=== PATIENT | male | born 1960 | race Caucasian/White ===

== ENCOUNTER 2016-07-14 20:56 | Emergency (ER) | payer MEDICAID ==
--- NOTE | 2016-07-14 21:21 | EDPHY ---
H & P Time Seen by Provider: 07/14/16 21:11 HPI/ROS: CHIEF COMPLAINT: Left wrist pain HISTORY OF PRESENT ILLNESS: Patient is a 56-year-old male with a history of bipolar disorder who presents to the emergency department with left wrist pain. Patient was on a trampoline and fell off. He landed on his left wrist. He now complains of moderate to severe left wrist pain. He states he has chronic back pain and he will be "sore tomorrow." He has no numbness or tingling. He denies striking his head or losing consciousness. REVIEW OF SYSTEMS: My complete review of systems is negative except as mentioned in the HPI. Past Medical/Surgical History: Includes bipolar disorder Past surgical history: Orthopedic surgery Smoking Status: Never smoked Physical Exam: Vitals noted GENERAL: Well-appearing, in no acute distress, alert. HEAD: No evidence of trauma. EYES: PERRLA, EOMI, normal to inspection. ENT: Airway intact,normal external examination. NECK: The trachea is midline. There is no crepitus. The C-spine is nontender. NEXUS criteria is negative (no midline tenderness, no distracting injury, no altered mental status, no recent alcohol use, no focal neurologic deficit). RESPIRATORY: Clear to auscultation bilaterally, no rales, rhonchi or wheezing CVS: Regular rate and rhythm, no rubs, murmurs, or gallops. ABDOMEN: Soft, nontender. Pelvis: Stable. No tenderness palpation. Hips full range of motion. BACK: Normal to inspection, no spinal tenderness, no spinal step off, no notable bruising or abrasions. SKIN: Normal color, warm, dry. No pallor or diaphoresis. EXTREMITIES: Right upper extremity: Atraumatic. No visible signs of trauma. No tenderness palpation. Neurovascular intact distally. Left upper extremity: Patient has a deformity of his left wrist. No laceration or open wound. He is neurovascularly intact distally. Patient's proximal forearm, elbow, humerus and shoulder are nontender. Right lower extremity: Atraumatic. No visible signs of trauma. No tenderness palpation. Neurovascular intact distally. Left lower extremity: Atraumatic. No visible signs of trauma. No tenderness palpation. Neurovascular intact distally. Atraumatic, neurovascularly intact distally in all extremities, pelvis is stable , hips with full range of motion, moves all extremities freely. NEURO/PSYCH: Alert and oriented x 3, GCS 15, normal mood and affect, normal motor sensory exam. Constitutional: Initial Vital Signs Temperature (C) 36.6 C 07/14/16 20:56 Heart Rate 50 L 07/14/16 20:56 Respiratory Rate 16 07/14/16 20:56 Blood Pressure 139/89 H 07/14/16 20:56 O2 Sat (%) 95 07/14/16 20:56 O2 Delivery Mode Room Air Allergies/Adverse Reactions: No Known Allergies Allergy (Verified 07/14/16 21:28) Home Medications: Medication Instructions Recorded Gabapentin [Neurontin 300 MG (RX)] 900 mg PO DAILY06 06/13/11 LORazepam [Ativan] 2 mg PO HS 06/13/11 lamoTRIgine [Lamictal Odt] 200 mg PO DAILY06 06/13/11 Aspirin [Aspirin 81mg (OTC)] 81 mg PO HS 09/27/12 clonAZEPAM [Klonopin] 1 mg PO HS 09/27/12 Albuterol 5 mg/ml INH AD PRN 06/25/16 Diclofenac Sodium DAILY06 06/25/16 Finasteride DAILY06 06/25/16 Flomax HS 06/25/16 Lipitor HS 06/25/16 Oxybutynin BID 06/25/16 Zanaflex TID 06/25/16 oxyCODONE/APAP 5/325 [Percocet 1 - 2 tab PO Q4PRN PRN #9 tab 07/14/16 5/325 (*)] Medical Decision Making - Diagnostics Imaging Results: Imaging Impressions Wrist X-Ray 07/14/16 21:18 Impression: Displaced, comminuted intra-articular fracture of the distal left radius. ED Course/Re-evaluation: In the emergency department I discussed etiologies with the patient. I answered all his questions. He consented to an x-ray of his wrist. Patient was given fentanyl 50 mcg IV for pain control. Left wrist x-ray: Please refer the dictated report by the radiologist. I reviewed the images. Patient has distal comminuted intra-articular fracture of his distal radius. I discussed the result with the patient. I paged Dr. Reyna. Dr. Cosby reviewed the images. He requested CT imaging. He did not feel the patient needed reduction in the emergency department. He recommended splinting and follow up with this office tomorrow morning. I discussed this plan with the patient. He is given 2 Percocet orally prior to CT imaging. Patient was placed in a sugar-tong splint. Post splint placement patient was neurovascular intact distally. Patient was given warnings prior to leaving. He understands he needs close follow-up with Dr. Cosby tomorrow morning. He will call his office. Differential Diagnosis: My differential includes but is not limited to fracture, dislocation, contusion , sprain, compartment syndrome - Data Points Medications Given: Discontinued Medications Fentanyl (Sublimaze) 50 mcg IVP EDNOW ONE Stop: 07/14/16 21:38 Last Admin: 07/14/16 21:25 Dose: 50 mcg Departure - Departure Disposition: Home, Routine, Self-Care Clinical Impression: Wrist fracture, left Qualifiers: Encounter type: initial encounter Fracture type: closed Qualified Code(s): S62.102A - Fracture of unspecified carpal bone, left wrist, initial encounter for closed fracture Condition: Good Instructions: Wrist Fracture in Adults (ED) Additional Instructions: You have a fractured wrist. Dr. Cosby reviewed your x-rays. He requests that you call his office 1st thing tomorrow morning. You will likely be seen in his office tomorrow morning. Return with increasing numbness or pain. Keep her splint in place. Referrals: Yoav Cosby MD [Medical Doctor] - 07/15/16 Prescriptions: oxyCODONE/APAP 5/325 [Percocet 5/325 (*)] 1 - 2 tab PO Q4PRN PRN #9 tab PRN Reason: For Moderate To Severe Pain
[2016-07-14] MEDS ORDERED: fentaNYL 100 MCG/2 ML INJ ONE (21:22)
[2016-07-14 21:34] VITALS: PULSE 50; RESP 16; TEMP 97.9
[2016-07-14] MEDS ORDERED: fentaNYL 100 MCG/2 ML INJ IVP ONE (21:37)
[2016-07-14] MEDS ORDERED: OXYCODONE/APAP 5/325 TAB ONE (22:14)
[2016-07-14] MEDS ORDERED: OXYCODONE/APAP 5/325MG PREPACK#4 BTL TAKEHOME ONE (22:35)
[2016-07-14 23:20] VITALS: BP 137/87; O2SAT 94
[2016-07-16] MEDS ORDERED: BUPIVACAINE 0.5% 30 ML SDV ONE ×2 (07:23→11:52)
== END 2016-07-14 23:17 | disposition home or self-care (01) ==
LOC: EDUNIT#
DX: S62.102A Fracture of unspecified carpal bone, left wrist, initial encounter for closed fracture (principal); Z79.82 Long term (current) use of aspirin; W17.89XA Other fall from one level to another, initial encounter; Y99.8 Other external cause status; Y93.44 Activity, trampolining
CPT/HCPCS: 96374; A4565; J3010

== ENCOUNTER 2016-07-16 10:42 | Observation (INO) | payer MEDICAID ==
[2016-07-16] MEDS ORDERED: LIDOCAINE 1% 2 ML INJ ONE (11:03)
[2016-07-16] MEDS ORDERED: fentaNYL 100 MCG/2 ML INJ ONE ×4 (11:41→14:16)
[2016-07-16] MEDS ORDERED: BUPIVACAINE 0.5% 30 ML SDV ONE (11:49)
[2016-07-16] MEDS ORDERED: ceFAZolin 2 GM/DEXTROSE 100 ML IV ONE (12:00)
[2016-07-16] MEDS ORDERED: CHLORHEXIDINE GLUC HIBICLENS 118 ML BTL TP ONE (12:00)
[2016-07-16] MEDS ORDERED: PROPOFOL/EMULSION 500 MG/50 ML BOTTLE IV ONE (12:16)
[2016-07-16] MEDS ORDERED: DEXAMETHASONE 4 MG/ML VIAL ONE ×2 (12:29)
[2016-07-16] MEDS ORDERED: CYCLOBENZAPRINE 10 MG TAB PO PRN (13:42)
[2016-07-16] MEDS ORDERED: ONDANSETRON DISINTEGRATING 4 MG TAB PO PRN (13:42)
[2016-07-16] MEDS ORDERED: DIPHENOXYLATE/ATROPINE LOMOTIL 1 TAB PO PRN (13:42)
[2016-07-16] MEDS ORDERED: ONDANSETRON 4 MG/2 ML VIAL IVP PRN (13:42)
[2016-07-16] MEDS ORDERED: PROMETHAZINE HCL 25 MG SUPPR PR PRN (13:42)
[2016-07-16] MEDS ORDERED: METOCLOPRAMIDE 10 MG/2 ML VIAL IVP PRN (13:42)
[2016-07-16] MEDS ORDERED: TEMAZEPAM 15 MG CAP PO PRN (13:42)
[2016-07-16] MEDS ORDERED: diphenhydrAMINE 25 MG CAP PO PRN (13:42)
[2016-07-16] MEDS: oxyCODONE IR 5 MG TAB PO PRN ×2 (15:29→18:42)
[2016-07-16] MEDS: LR 1,000 ML IV SCH (15:31)
--- NOTE | 2016-07-16 15:41 | GOP ---
[f rep st] OPERATIVE REPORT DATE OF OPERATION: 07/16/2016 SURGEON: Yoav Cosby MD [employer]: Deion Joaquin SA. ANESTHESIA: General. PREOPERATIVE DIAGNOSIS: Left comminuted intra-articular 4 part distal radius fracture. POSTOPERATIVE DIAGNOSIS: PROCEDURE PERFORMED: FINDINGS: fracture SPECIMENS:none ESTIMATED BLOOD LOSS: 5 mL. INDICATIONS: This is a 56-year-old male who sustained a fall and this complex intra-articular distal radius fracture. I had a CT scan performed and saw him in the clinic. I counseled him on the risks, benefits of ORIF versus nonoperative treatment. Given the intra-articular nature of the displacement and step-offs, we elected to proceed with the surgery. He does have multiple medical issues and I consulted with his primary care physician who recommend admission afterwards, as he has had some recent episodes of hypotension, and medical and renal insufficiency. She felt he would do well with surgery, but recommended admission. We will do this. Informed consent was obtained with the patient. All questions were answered, marked preoperatively. We discussed risks of nerve injury, arthritis, step-off, nonunion, malunion, failure of hardware, problem with the hardware, tendon rupture, and he elected to proceed. Informed consent was obtained. All questions were answered and he was marked preoperatively. DESCRIPTION OF PROCEDURE: He was taken to the operative suite, sterilely prepped and draped in a normal fashion, time-out was performed verifying the site, side, location, patient, and agreement among the team. Incision was made volarly over the wrist. I went through the FCR sheath, using this to protect the neurovascular bundle, and then took the quadratus off the bone and swept this medially. I was able to work through the fracture site and reduce some of the intra-articular fragments indirectly. I got around to the ulnar side and reduced this fragment, as well as the styloid fragment and the main distal radius fragment. I then flexed the wrist and was able to reduce this and hold this with a K-wire. I placed a plate on this and checked the position, readjusted this, checked the plate position again, placed a locking screw distally in the fragment, and then brought the plate to bone with a cortical screw proximally helping to achieve further reduction. I placed locking screws distally and cortical screws proximally. I checked the length of the locking screws and they were not in the joint, and checked with this live. He was thoroughly irrigated, closed with 2-0 Vicryl, 3-0 Vicryl, 3-0 Monocryl, and Dermabond. Taken to PACU in stable condition. IMPLANT: Synthes distal radius plate with locking and nonlocking screws. COMPLICATIONS: None. DRAINS: None. CONDITION: Stable. /[id number]/MODL MTDD
[2016-07-16] MEDS: ACETAMINOPHEN 325 MG TAB PO SCH (18:09)
[2016-07-16] MEDS: ceFAZolin 2 GM/DEXTROSE 100 ML IV SCH (20:02)
[2016-07-16] MEDS ORDERED: LORazepam 1 MG TAB PO PRN (20:45)
[2016-07-16] MEDS: FAMOTIDINE 20 MG TAB PO SCH (20:55)
[2016-07-17] MEDS: ACETAMINOPHEN 325 MG TAB PO SCH ×3 (02:39→14:49)
[2016-07-17] MEDS: oxyCODONE IR 5 MG TAB PO PRN ×2 (03:42→08:17)
[2016-07-17] MEDS: ceFAZolin 2 GM/DEXTROSE 100 ML IV SCH (03:42)
[2016-07-17] MEDS: LR 1,000 ML IV SCH (03:44)
[2016-07-17 05:20] LABS: HEMATOCRIT 42.3 % (40.0-51.0); HEMOGLOBIN 14.3 g/dL (13.7-17.5)
[2016-07-17 08:12] VITALS: RESP 15
[2016-07-17] MEDS: FAMOTIDINE 20 MG TAB PO SCH (08:19)
--- NOTE | 2016-07-17 08:29 | SOAPPROG ---
JOHN Progress Note Assessment/Plan: Assessment: orif left distal radius Plan: home elevate nwb keep dry 07/17/16 08:28 Subjective: pain Objective: Vital Signs Temp Pulse Resp BP Pulse Ox 36.7 C 44 L 15 101/55 L 98 07/17/16 08:00 07/17/16 08:00 07/17/16 08:00 07/17/16 08:00 07/17/16 08:00 Laboratory Results 07/17/16 05:00 07/16/16 07/17/16 07/18/16 05:59 05:59 05:59 Intake Total 3721 Output Total 2703 Balance 1018 splint in tact ICD10 Worksheet Patient Problems: Problems Problem Status Onset Distal radius fracture, left Acute - ICD10 Problem Qualifiers (1) Distal radius fracture, left Qualifiers: Encounter type: subsequent encounter Fracture type: closed Open fracture type: O Fracture morphology: F Fracture alignment: F Fracture healing: F
--- NOTE | 2016-07-17 08:40 | CPEKG ---
Heart Rate: 42 RR Interval: 1429 P-R Interval: 160 QRSD Interval: 84 QT Interval: 472 QTC Interval: 395 P [place]: 41 QRS [place]: 16 T Wave [place]: 5 EKG Severity - OTHERWISE NORMAL ECG - EKG Impression: SINUS BRADYCARDIA Electronically Signed By: Clifton Valdez 17-Jul-2016 09:09:23
[2016-07-17 09:13] LABS: CK-MB INTERPRETATION NEGATIVE (NEGATIVE); TROPONIN I < 0.012 ng/mL (0-0.034)
[2016-07-17 09:18] LABS: CREATINE KINASE-MB FRACTION 4.72 ng/mL (0-3.19)
[2016-07-17] MEDS ORDERED: clonazePAM 1 MG TAB PO PRN (11:22)
[2016-07-17] MEDS ORDERED: ALBUTEROL 60 PUFFS/8 GM MDI IH PRN (11:22)
[2016-07-17] MEDS ORDERED: LORazepam 1 MG TAB PO PRN (11:22)
[2016-07-17] MEDS ORDERED: FINASTERIDE 5 MG TAB PO SCH (11:30)
[2016-07-17 12:19] LABS: ANION GAP 13 mEq/L (8-16); CALCIUM 9.7 mg/dL (8.5-10.4); CARBON DIOXIDE 25 mEq/l (22-31); CHLORIDE 102 mEq/L (97-110); GLOMERULAR FILTRATION RATE > 60; GLUCOSE 133 mg/dL (70-100); POTASSIUM 4.4 mEq/L (3.5-5.2); SODIUM 140 mEq/L (134-144)
--- NOTE | 2016-07-17 12:29 | GCON ---
[f rep st] CONSULTATION REFERRING PHYSICIAN: Yoav Cosby MD REASON FOR CONSULTATION: Evaluation of chest pain. HISTORY OF PRESENT ILLNESS: The patient is a 56-year-old male who has a past medical history of GERD, sleep apnea, anxiety as well as bipolar disorder who is postop day #1 for a left distal radius fracture. He had an ORIF performed with Dr. Cosby. This morning he developed an episode of chest pain. The pain did not radiate anywhere. He did not have any nausea or vomiting. He describes the chest pain being hooked underneath the sternal area and that it was intermittent. The pain is different than that of GERD. He does not feel that his anxiety caused the chest pain. It has since resolved on its own. Cardiac enzymes were checked which are negative. An EKG performed which showed sinus bradycardia. He had a stress test done approximately 2 years ago and stated that this was normal. He does not recall where this was done. In regard to his radius fracture, it was simply an issue of gait instability. He tripped and fell over a trampoline and then slipped again. He had no presyncopal-type symptoms prior. During my interview his pain is well managed. PAST MEDICAL HISTORY: 1. Bradycardia. 2. History of hypotension. 3. High cholesterol. 4. Sleep apnea, on CPAP. 5. Renal insufficiency. 6. Tinnitus located in his right ear. 7. Anxiety and depression. 8. Bipolar 2, well managed. PAST SURGICAL HISTORY: 1. 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 2. One knee surgery. 3. Tonsillectomy. 4. LASIK surgery to his right eye. SOCIAL HISTORY: He is currently not in a relationship. He does not smoke. He occasionally uses alcohol. He does not use any type of cannabis or any hard drugs. He currently is on disability. FAMILY HISTORY: His father at age 69 from complications of leukemia and also had a myocardial infarction. His mom from cancer at age 69. ALLERGIES: Tramadol. HOME MEDICATIONS: Zanaflex 6 mg daily and p.r.n., Nexium 40 mg p.o. at bedtime , Percocet 1-2 tabs q.4 hours p.r.n., Ditropan 5 mg p.o. b.i.d., Lipitor 40 mg p.o. at bedtime, Lamictal 200 mg daily, Ativan 2 mg p.o. at bedtime, Ativan 2 mg daily, Neurontin 900 mg daily, Neurontin 1200 mg p.o. at bedtime, Flomax 0.4 mg at bedtime, Proscar 5 mg daily, Voltaren 75 mg p.o. daily, Klonopin 1 mg p.o. at bedtime, Klonopin 1 mg daily p.r.n., aspirin 81 mg p.o. daily, albuterol inhaler 2 puffs q.4 hours p.r.n., and OxyIR 5-10 mg q.3 hours p.r.n. REVIEW OF SYSTEMS: A 10-point review of system was performed and was negative other than pertinent positives in the HPI and past medical history. PHYSICAL EXAM: GENERAL. The patient is a 56-year-old male who does not appear to be in any distress. VITAL SIGNS: Blood pressure is 101/55, heart rate is 44 , respiratory rate is 15, O2 sat on room air 98%, temperature is 36.7 Celsius. EYES: Pupils are equal and reactive. EOMs are intact. No conjunctival injection noted. ENT: Normal ears, hearing intact. Normal lips, teeth. Oral airway intact. NECK: Trachea is midline. CARDIOVASCULAR: He is bradycardic during my evaluation, regular rate. No murmurs, rubs, or gallops noted. CHEST/ LUNGS: Normal respiratory effort. Clear without wheezing, rales, rhonchi. ABDOMEN: Soft, nontender. SKIN: No rashes or ulcers. Warm, dry, intact. He has good CMS on his left hand. MUSCULOSKELETAL: Normal gait. He has equal lower extremity strength. Upper strength, he has his left wrist in a splint. PSYCHIATRIC: He is alert and oriented. Normal mood and affect. Normal judgment. Normal insight and normal memory. LABORATORY DATA: Hemoglobin and hematocrit were checked this morning at 14.3 and 42.3. A CPK was elevated at 366. Troponin is less than 0.012. ECG was performed which I evaluated myself which showed sinus bradycardia. ASSESSMENT/PLAN: 1. Chest pain. I am able to reproduce this with palpation. His symptoms resolved without any intervention. Troponin is negative. Awaiting his second troponin. Reviewed his EKG, which shows a sinus bradycardia. Recommending once he heals from his surgery for his left radius fracture that he get a stress test. 2. Gastroesophageal reflux disease. Continue PPI. 3. Depression and anxiety. Resumed his home medications. 4. Chronic renal insufficiency. Will check a chemistry panel prior to discharge. 5. Hypotension. He is on multiple medications that can cause this. Will recommend that he get a blood pressure cuff at home. 6. Bipolar disorder. Resumed his home medication. 7. Will further evaluate his second troponin this afternoon and will have Dr. Neff also evaluate this. If this is stable, he can be discharged home. Thank you for this consultation. /[id number]/MODL MTDD
[2016-07-17 12:44] VITALS: BP 101/66; PULSE 46; TEMP 98.4; O2SAT 93
--- NOTE | 2016-07-17 16:27 | HOSPPROG ---
Hospitalist Progress Note Assessment/Plan: I have visited this patient in follow up after prior evaluation by Paris Montes NP. His pain is resolved. This was a sharp very localized pain that does not sound at all like angina, and was not pleuritic. It is fairly nonspecific. There were no other associated sxs. He is up ambulating, eating, has no sob, palpitations, fever sxs, DVT sxs, fever sxs, cough. His troponins and ekg are normal. I do not think this is cardiac, embolic, pulmonary, or a symptom of serious intraabdominal pathology. I think he can discharge home safely. I advised him that if he has recurrences he should reasses with his primary MD Dr Davis. Objective: Vital Signs Temp Pulse Resp BP Pulse Ox 36.9 C 46 L 15 101/66 93 07/17/16 12:43 07/17/16 12:43 07/17/16 12:43 07/17/16 12:43 07/17/16 12:43 Laboratory Results 07/17/16 05:00 07/17/16 11:55 07/16/16 07/17/16 07/18/16 06:59 06:59 06:59 Intake Total 3721 Output Total 2703 600 Balance 1018 -600 ICD10 Worksheet Patient Problems: Problems Problem Status Onset Distal radius fracture, left Acute
[2016-07-17] MEDS ORDERED: OXYBUTYNIN CHLORIDE 5 MG TAB PO SCH (21:00)
[2016-07-17] MEDS ORDERED: LORazepam 1 MG TAB PO SCH (21:00)
[2016-07-17] MEDS ORDERED: NON-FORMULARY NEW DRUG (Esomeprazole Mag Trihydrate [Nexium] 40 MG) PO SCH (21:00)
[2016-07-17] MEDS ORDERED: ATORVASTATIN CALCIUM 40 MG TAB PO SCH (21:00)
[2016-07-17] MEDS ORDERED: PANTOPRAZOLE SODIUM 40 MG TAB PO SCH (21:00)
[2016-07-17] MEDS ORDERED: clonazePAM 1 MG TAB PO SCH (21:00)
[2016-07-17] MEDS ORDERED: GABAPENTIN 300 MG CAP PO SCH (21:00)
[2016-07-17] MEDS ORDERED: TAMSULOSIN HCL 0.4 MG CAP PO SCH (21:00)
[2016-07-18] MEDS ORDERED: GABAPENTIN 300 MG CAP PO SCH (09:00)
[2016-07-18] MEDS ORDERED: NON-FORMULARY NEW DRUG (Lamotrigine [Lamictal] 200 MG) PO SCH (09:00)
[2016-07-18] MEDS ORDERED: lamoTRIgine 100 MG TAB PO SCH (09:00)
== END 2016-07-17 17:16 | disposition home or self-care (01) ==
LOC: FSGY 10:42 → F3N 13:42
PROVIDERS: ADMIT Orthopaedic Surgery; ATTEND Orthopaedic Surgery
PROC: 0PSJ04Z Reposition Left Radius with Internal Fixation Device, Open Approach (ICD-10-PCS; principal; 2016-07-16 12:15)
DX: S52.572A Other intraarticular fracture of lower end of left radius, initial encounter for closed fracture (principal); R07.9 Chest pain, unspecified; I95.9 Hypotension, unspecified; W01.0XXA Fall on same level from slipping, tripping and stumbling without subsequent striking against object, initial encounter; E78.5 Hyperlipidemia, unspecified; J45.909 Unspecified asthma, uncomplicated; K21.9 Gastro-esophageal reflux disease without esophagitis; G47.30 Sleep apnea, unspecified; F41.9 Anxiety disorder, unspecified; F31.9 Bipolar disorder, unspecified; H81.09 Meniere's disease, unspecified ear; N18.9 Chronic kidney disease, unspecified
CPT/HCPCS: 25609; 93005; 97161; 97165; C1769; G0378; C1713; J0690; J1100; J2704; J3010

== ENCOUNTER 2016-07-29 10:10 | Day surgery (SDC) | payer MEDICAID ==
[2016-07-29] MEDS ORDERED: MIDAZOLAM 2 MG/2 ML VIAL ONE (11:40)
[2016-07-29] MEDS ORDERED: PROPOFOL/EMULSION 500 MG/50 ML BOTTLE IV ONE (11:46)
[2016-07-29] MEDS ORDERED: fentaNYL 100 MCG/2 ML INJ ONE (11:46)
--- NOTE | 2016-07-29 12:37 | GPN ---
[f rep st] PROCEDURE NOTE DATE OF PROCEDURE: 07/29/2016 PROCEDURE: Esophagogastroduodenoscopy with biopsy. INDICATION: The patient is a 56-year-old male who presents with complaints of heartburn. He is on PPI therapy and does have occasional breakthrough symptoms. He presents for further evaluation. CONSENT: Risks, benefits, and alternatives of the procedure were discussed in great detail with the patient. Risks of infection, bleeding, perforation, and sedation were discussed. All questions answered. Informed consent was obtained. MEDICATIONS: Propofol. Please see anesthesiology record for details. ESTIMATED BLOOD LOSS: Insignificant. ESOPHAGOGASTRODUODENOSCOPY EXAMINATION: The Olympus upper endoscope introduced into mouth and advanced to the esophagus. The proximal, mid, and distal esophagus was normal in appearance. The stomach was entered and closely examined, including retroflexed views of angularis, cardia, and fundus. A small hiatal hernia was visualized. The mucosa in the antrum and body was erythematous in a patchy distribution, and biopsies were taken. In the second portion of the duodenum, mild mucosal atrophy was noted. Biopsies were taken to rule out celiac sprue. IMPRESSION: 1. Gastritis, status post biopsy. 2. Small hiatal hernia. 3. Subtle atrophy in the second portion of the duodenum. RECOMMENDATIONS: 1. Follow up on biopsy results. 2. PPI therapy. 3. Proceed with colonoscopy. /[id number]/MODL MTDD
--- NOTE | 2016-07-29 12:42 | GPN ---
[f rep st] PROCEDURE NOTE DATE OF PROCEDURE: 07/29/2016 PROCEDURE PERFORMED: Colonoscopy. INDICATION: The patient is a 56-year-old male with a family history of colonic polyps who presents for surveillance colonoscopy. CONSENT: Risks, benefits, and alternatives of the procedure were discussed in great detail with the patient. Risk of infection, bleeding, perforation, and sedation were discussed. All questions answered and informed consent was obtained. MEDICATIONS: Propofol. Please see Anesthesiology record for details. ESTIMATED BLOOD LOSS: Insignificant. COLONOSCOPIC EVALUATION: A rectal exam was done and no palpable mass was felt. The scope was introduced into the rectum and advanced to the cecum where the ileocecal valve and appendiceal orifice were seen. The colonic mucosa was carefully examined upon both insertion and withdrawal of the scope. The colon prep was good. The patient was noted to have multiple small sigmoid diverticula. No polyps or masses were appreciated. IMPRESSION: Sigmoid diverticulosis. RECOMMENDATIONS: 1. Fiber supplementation. 2. Repeat colonoscopy in 5 years. /[id number]/MODL MTDD
--- NOTE | 2016-07-29 12:42 | GPN ---
[f rep st] PROCEDURE NOTE Colonoscopy report already dictated /[id number]/MODL MTDD
== END 2016-07-29 13:45 | disposition home or self-care (01) ==
LOC: FSGY 10:10
PROVIDERS: ATTEND Internal Medicine Gastroenterology
DX: K29.70 Gastritis, unspecified, without bleeding (principal); K44.9 Diaphragmatic hernia without obstruction or gangrene; K21.9 Gastro-esophageal reflux disease without esophagitis; J45.909 Unspecified asthma, uncomplicated; G47.33 Obstructive sleep apnea (adult) (pediatric); Z83.71 Family history of colonic polyps
CPT/HCPCS: J2250; J2704; J3010

== ENCOUNTER 2016-09-27 14:53 | Day surgery (SDC) | payer MEDICAID ==
[~2016-09-27 14:53] MED LIST: ceFAZolin 2 GM/DEXTROSE 100 ML IV ONE
[2016-09-27] MEDS ORDERED: CEFAZOLIN 2 GM/DEXTROSE/100 ML BAG IV ONE (15:09)
[2016-09-27] MEDS ORDERED: LR 1,000 ML IV ONE (15:32)
[2016-09-27] MEDS ORDERED: BUPIVACAINE 0.5% 30 ML SDV ONE (16:06)
[2016-09-27] MEDS ORDERED: NALOXONE HCL 0.4 MG/ML INJ IVP PRN ×2 (16:49→17:53)
[2016-09-27] MEDS ORDERED: MIDAZOLAM 2 MG/2 ML VIAL IVP ONE (16:49)
--- NOTE | 2016-09-27 16:49 | PDANEPAE ---
ANE History of Present Illness retained hardware needing removal ANE Past Medical History - Cardiovascular History Hx Hypertension: Yes Hx Arrhythmias: No Hx Chest Pain: No Hx Coronary Artery / Peripheral Vascular Disease: No Hx CHF / Valvular Disease: No Hx Palpitations: No Cardiovascular History Comment: RECENTLY LOW BP RX DC'D - Pulmonary History Hx COPD: No Hx Asthma/Reactive Airway Disease: Yes Hx Recent Upper Respiratory Infection: No Hx Oxygen in Use at Home: No Hx Sleep Apnea: Yes Sleep Apnea Screening Result - Last Documented: Positive Pulmonary History Comment: SLIGHT ASTHMA. LUZ USES C-PAP INSTRUCTED TO BRING DOP - Neurologic History Hx Cerebrovascular Accident: No Hx Seizures: No Hx Dementia: No Neurologic History Comment: DDD/PREV CERVICAL HERNIATION - Endocrine History Hx Diabetes: No - Renal History Hx Renal Disorders: Yes Renal History Comment: DECREASED KIDNEY FUNCTION RELATED TO RX WHICH HAS BEEN DECREASED HAVING FURTHER FOLLOW UP WHICH HAS RESOLVED ISSUE. - Liver History Hx Hepatic Disorders: No - Neurological & Psychiatric Hx Hx Neurological and Psychiatric Disorders: Yes Neurological / Psychiatric History Comment: BIPOLAR TYPE 2. DEPRESSION. ANXIETY - Cancer History Hx Cancer: No - Congenital Disorder History Hx Congenital Disorders: No - GI History Hx Gastrointestinal Disorders: No - Other Health History Other Health History: [place] VIRUS 2012. TINNITUS OD - Chronic Pain History Chronic Pain: Yes (DDD, left wrist) - Surgical History Prior Surgeries: EGD/COLONOSCOPY 07/2016. LT WRIST ORIF 06/2016. CYSTOSCOPY 2013. T & A. RT KNEE SCOPE. LASIK OD. COLONOSCOPY 2011 ANE Review of Systems - Exercise capacity METS (RN): 4 METS ANE Patient History - Allergies Allergies/Adverse Reactions: tramadol Allergy (Verified 09/27/16 15:14) shaking - Home Medications Home Medications: Albuterol [Proventil Inhaler HFA (*)] 2 puffs IH Q4 PRN 07/16/16 [Last Taken 11/06] Aspirin EC [Aspirin EC 81 mg (*)] 81 mg PO DAILY 07/16/16 [Last Taken 09/26/16] Atorvastatin Calcium [Lipitor 40 mg (*)] 40 mg PO HS 07/16/16 [Last Taken ] Diclofenac Sodium [Voltaren 75 MG (*)] 75 mg PO DAILY 07/16/16 [Last Taken 09/20] Esomeprazole Mag Trihydrate [Nexium] 40 mg PO HS 07/16/16 [Last Taken 09/26/16] Finasteride [Proscar 5 MG (*)] 5 mg PO DAILY 07/16/16 [Last Taken 09/27/16 07:00 ] Gabapentin [Neurontin 300 MG (*)] 1,200 mg PO HS 07/16/16 [Last Taken 09/26/16] Gabapentin [Neurontin 300 MG (*)] 900 mg PO DAILY 07/16/16 [Last Taken 09/27/16 07:00] LORazepam [Ativan (*)] 2 mg PO DAILY PRN 07/16/16 [Last Taken 09/26/16] LORazepam [Ativan (*)] 2 mg PO HS 07/16/16 [Last Taken 09/26/16] Oxybutynin Chloride [Ditropan] 5 mg PO BID 07/16/16 [Last Taken 09/26/16] Tamsulosin HCl [Flomax 0.4 MG (*)] 0.4 mg PO HS 07/16/16 [Last Taken 09/27/16 07 :00] clonazePAM [klonoPIN (*)] 1 mg PO DAILY PRN 07/16/16 [Last Taken 09/29/15] clonazePAM [klonoPIN (*)] 1 mg PO HS 07/16/16 [Last Taken 09/26/16] lamoTRIgine [Lamictal] 200 mg PO DAILY 07/16/16 [Last Taken 09/27/16 07:00] tiZANidine HCL [Zanaflex 2MG (*)] 6 mg PO TID 07/16/16 [Last Taken 09/26/16] Herbal Drugs DAILY 09/26/16 [Last Taken 09/27/16 07:00] Ondansetron TID 09/26/16 [Last Taken 09/27/16 07:00] - NPO status NPO Since - Liquids (Date): 09/27/16 NPO Since - Liquids (Time): 07:00 NPO Since - Solids (Date): 09/26/16 NPO Since - Solids (Time): 22:00 - Smoking Hx Smoking Status: Never smoked - Family Anes Hx Family Hx Anesthesia Complications: none ANE Labs/Vital Signs - Vital Signs Blood Pressure: 141/89 Heart Rate: 63 Respiratory Rate: 13 O2 Sat (%): 93 Height: 165.1 cm Weight: 90.718 kg ANE Physical Exam - Airway Neck exam: FROM Mallampati Score: Class 1 - Pulmonary Pulmonary: no respiratory distress - Cardiovascular Cardiovascular: regular rate and rhythym - ASA Status ASA Status: II ANE Anesthesia Plan Anesthesia Plan: GA w LMA (postop nerveblock if needed)
[2016-09-27] MEDS ORDERED: MIDAZOLAM 2 MG/2 ML VIAL ONE (16:52)
--- NOTE | 2016-09-27 16:53 | PDHPUP ---
History & Physical Update H&P update statement: This history and physical update is based on an assessment of the patient which was completed after admission or registration (within 24 hours), but prior to the surgery/procedure.
[2016-09-27] MEDS ORDERED: fentaNYL 100 MCG/2 ML INJ ONE (17:04)
[2016-09-27] MEDS ORDERED: DEXAMETHASONE 4 MG/ML VIAL ONE ×2 (17:04)
[2016-09-27] MEDS ORDERED: PROPOFOL/EMULSION 500 MG/50 ML BOTTLE IV ONE (17:04)
[2016-09-27] MEDS ORDERED: LIDOCAINE 2% 5 ML SDV ONE (17:05)
[2016-09-27] MEDS ORDERED: ONDANSETRON 4 MG/2 ML VIAL ONE (17:05)
[2016-09-27] MEDS ORDERED: LIDOCAINE 2% JELLY 5 ML TUBE ONE (17:08)
--- NOTE | 2016-09-27 17:48 | POSTOPPROG ---
Post Op Note Date of Operation: 09/27/16 Surgeon: Yoav Cosby Associate Professor Of Biblical Studies: none Anesthesiologist: herson Anesthesia: GET(General Endotracheal) Pre-op Diagnosis: L wrist retained hardware Post-op Diagnosis: same Indication: symptomatic hardware Procedure: hardware removal left wrist Inf/Abcess present in the surg proc area at time of surgery?: No EBL: Minimal
[2016-09-27] MEDS ORDERED: PROMETHAZINE HCL 25 MG/ML INJ IVP PRN (17:53)
[2016-09-27] MEDS ORDERED: MEPERIDINE 25 MG/ML SYR IVP PRN (17:53)
[2016-09-27] MEDS ORDERED: LR 500 ML IV PRN (17:53)
[2016-09-27] MEDS ORDERED: DEXAMETHASONE 4 MG/ML VIAL IVP PRN (17:53)
[2016-09-27] MEDS ORDERED: fentaNYL 100 MCG/2 ML INJ IVP PRN ×2 (17:53)
[2016-09-27] MEDS ORDERED: ACETAMINOPHEN 500 MG TAB PO PRN (17:53)
[2016-09-27] MEDS ORDERED: HYDROCODONE/APAP 5/325 TAB PO PRN (17:53)
[2016-09-27] MEDS ORDERED: HYDROmorphONE/DILAUDID 1 MG/ML SYR IVP PRN ×2 (17:53)
[2016-09-27] MEDS ORDERED: ONDANSETRON 4 MG/2 ML VIAL IVP PRN (17:53)
[2016-09-27] MEDS ORDERED: METOCLOPRAMIDE 10 MG/2 ML VIAL IVP PRN (17:53)
[2016-09-27] MEDS ORDERED: OXYCODONE/APAP 5/325 TAB PO PRN (17:53)
[2016-09-27] MEDS ORDERED: LABETALOL HCL 50 MG/10 ML SYR IVP PRN (17:53)
--- NOTE | 2016-09-27 17:55 | POSTANESTH ---
Post Anesthetic Evaluation Cardiovascular Status: Normal, Stable Respiratory Status: Normal, Stable Level of Consciousness/Mental Status: Can Participate in Eval, Mildly Sleepy, Arousable Pain Control: Adequate, Prn Tx Ordered Nausea/Vomiting Control: Adequate, Prn Tx Ordered Complications Possibly Related to Anesthesia: None Noted
[2016-09-27 18:09] VITALS: TEMP 96.6
--- NOTE | 2016-09-27 18:22 | GOP ---
[f rep st] OPERATIVE REPORT DATE OF OPERATION: 09/27/2016 SURGEON: Yoav Cosby MD PAINTER MIRROR: None. ANESTHESIA: General. PREOPERATIVE DIAGNOSIS: Symptomatic retained hardware of left distal radius. POSTOPERATIVE DIAGNOSIS: Symptomatic retained hardware of left distal radius. PROCEDURE PERFORMED: Removal of hardware deep implants, left distal radius. Specifically 3 locking screws. FINDINGS: ESTIMATED BLOOD LOSS: 0 mL. INDICATIONS: This is a 56-year-old male who sustained a complex comminuted distal radius fracture I fixed with an ORIF. I had intraoperative x-ray showing good reduction and stable hardware that was not in the joint. I followed him postoperatively. He did admit to an incident where he bore weigh t through his wrist with his entire body weight at about 4 weeks. I did have some concern for subsi dence. He came back with increasing pain. We got x-rays and a CT scan showing further subsidence a nd prominence of the screws in the joint, particularly in the lunate fossa. I counseled on risks an d benefits of screw removal, specifically the 3 screws 2 of which were obviously in the joint and 1 which was close. I did primary substance abuse counselor him about leaving the remaining hardware for additional stability as he was still healing, but I felt he was healed enough I did not need to replace any hardware. I al so consented him to test his DRUJ under anesthesia at his request. He elected to proceed. Informed consent was obtained. All questions answered. Discussed risks of further subsidence, loss of redu ction, malunion, nonunion, need for further surgery, further symptomatic heart rate and nerve injury , blood vessels. DESCRIPTION OF PROCEDURE: He was marked preoperatively. Informed consent was obtained. He was taken to the operative suite. Anesthesia was induced. He was given 2 g of Ancef. Sterile p rep and drape in normal fashion. Time-out was performed verifying the site, side, location, and the re was agreement with the team. Incision was made over his old incision, a portion of this. I diss ected carefully through the old scar, protecting tendons, neurovascular structure to the plate of th e distal radius. I identified the screws for removal, removing the 3 most proximal and most distal ulnar screws. I left the more proximal ulnar screw and the 2 radial styloid screws. I took x-rays confirming these were not within the joint. He had a stable wrist including with exam under anesthesia, moving the wrist and he had a stable DRUJ with exam under anesthesia. Irrigated this, closed with 3-0 Vicryl, 3-0 Monocryl, and Dermabond. He was placed in sterile dress ing, taken to PACU in stable condition. COMPLICATIONS: None. DRAINS: None. CONDITION: Stable. /[id number]/MODL
[2016-09-27 18:46] VITALS: RESP 14
[2016-09-27 19:14] VITALS: BP 125/67; PULSE 54; O2SAT 93
== END 2016-09-27 19:10 | disposition home or self-care (01) ==
LOC: FSGY 14:53
PROVIDERS: ATTEND Orthopaedic Surgery
PROC: 0PPJ04Z Removal of Internal Fixation Device from Left Radius, Open Approach (ICD-10-PCS; principal; 2016-09-27 16:30)
DX: T84.398A Other mechanical complication of other bone devices, implants and grafts, initial encounter (principal); T84.84XA Pain due to internal orthopedic prosthetic devices, implants and grafts, initial encounter; M25.532 Pain in left wrist; M54.5 Low back pain; S52.501D Unspecified fracture of the lower end of right radius, subsequent encounter for closed fracture with routine healing; G47.33 Obstructive sleep apnea (adult) (pediatric); N28.9 Disorder of kidney and ureter, unspecified; F31.9 Bipolar disorder, unspecified; F32.9 Major depressive disorder, single episode, unspecified; F41.9 Anxiety disorder, unspecified; J45.909 Unspecified asthma, uncomplicated
CPT/HCPCS: J0690; J1100; J2250; J2405; J2704; J3010

== ENCOUNTER → 2016-12-19 | Outpatient (CLI) | payer MEDICAID ==
--- NOTE | 2016-12-25 11:44 | CPEEG ---
[f rep st] ELECTROENCEPHALOGRAM DATE OF STUDY: 12/19/2016 INTRODUCTION: This is a multichannel EEG using the standard International 10-20 system of disk elect rode placement. A single EKG channel was monitored for the duration of the study. This study was un dertaken for the evaluation of spells of nocturnal incontinence. No pertinent medications to report. Duration of the study was 30 minutes. DESCRIPTION OF RECORDING: In the maximum alert state, the patient achieved a symmetric posterior dom inant rhythm of 11-12 Hz alpha activity that attenuated with eye opening. Activating measures, inclu ding photic stimulation and hyperventilation were undertaken. Photic stimulation resulted in a drivi ng response. Hyperventilation resulted in a mild and transient buildup. Patient went into a drowsy state as marked by slow roving eye movements, waning of the background and anterior spread of alpha. N1 sleep was noted as marked by POSTS and vertex waves. A brief period of N2 sleep was observed as marked by K complexes and spindle activity. The EKG demonstrated normal sinus rhythm for the duratio n of the recording. INTERPRETATION: Normal awake through N2 sleep EEG. CLINICAL CORRELATION: No focal lateralizing epileptiform discharges. /[id number]/MODL
== END ==
LOC: FCPNEURO 10:01
PROVIDERS: ATTEND Psychiatry & Neurology Neurology
DX: R32 Unspecified urinary incontinence (principal)

== ENCOUNTER 2017-06-22 18:52 | Emergency (ER) | payer MEDICAID ==
--- NOTE | 2017-06-22 18:55 | EDPHY ---
H & P Time Seen by Provider: 06/22/17 18:54 HPI/ROS: CHIEF COMPLAINT: Vomiting and diarrhea HISTORY OF PRESENT ILLNESS: Patient went to bed at 1:00 a.m. And awakened at 3: 00 a.m. With cold sweats. Subsequently had 3 bowel movements each looser than the last and then has had vomiting and diarrhea all day including just 5 min before EMS arrived. No hematemesis or coffee-ground emesis and no melena. Associated with bilateral lower abdominal cramping which is mild. Worse with oral intake. No previous abdominal surgery and no fever or chills. REVIEW OF SYSTEMS: Eye: no change in vision ENT: no sore throat Cardiac: no chest pain or syncope Pulmonary: no cough or SOB Abdomen: HPI Musculoskeletal: no back pain Skin: no rash Neuro: no headache Constitutional: no fever : no urinary symptoms A comprehensive 10 point review of systems is otherwise negative aside from elements mentioned in the history of present illness. PAST MEDICAL HISTORY: Includes bipolar disorder and left wrist surgery, no abdominal surgeries. Social history: 3 beers last night General Appearance: Alert and conversant, cooperative. Eyes: No scleral icterus. ENT, Mouth: Dry mucous membranes Respiratory: Normal respiratory effort, breath sounds equal, lungs are clear to auscultation. Cardiovascular: Regular rate and rhythm. Gastrointestinal: Mild lower abdominal tenderness but no rebound or guarding. Neurological: Alert, face symmetric, normal motor and sensory in extremities. Skin: Warm and dry, no rashes. Musculoskeletal: No peripheral edema. Psychiatric: Not agitated. Emergency Department course/MDM: Patient received antiemetics by EMS prior to arrival, including Zofran and Phenergan. Says he has already started to feel better by the time he arrives. 1931: CBC electrolytes reviewed, hematocrit consistent with moderate dehydration. Normal sodium. IV hydration with 2-3 L normal saline, can tolerate oral fluids with discharge home with Zofran ODT. Does not on examination have high likelihood of surgical process at this time, no rebound or guarding at this exam. Smoking Status: Never smoked Constitutional: Initial Vital Signs Temperature (C) 36.9 C 06/22/17 19:01 Heart Rate 111 H 06/22/17 19:01 Respiratory Rate 18 06/22/17 19:01 Blood Pressure 141/85 H 06/22/17 19:01 O2 Sat (%) 94 06/22/17 19:01 O2 Delivery Mode Room Air Allergies/Adverse Reactions: tramadol Allergy (Verified 09/27/16 15:14) shaking Home Medications: Medication Instructions Recorded Albuterol [Proventil Inhaler HFA 2 puffs IH Q4 PRN 07/16/16 (*)] Aspirin EC [Aspirin EC 81 mg (*)] 81 mg PO DAILY 07/16/16 Atorvastatin Calcium [Lipitor 40 40 mg PO HS 07/16/16 mg (*)] Diclofenac Sodium [Voltaren 75 MG 75 mg PO DAILY 07/16/16 (*)] Esomeprazole Mag Trihydrate 40 mg PO HS 07/16/16 [Nexium] Finasteride [Proscar 5 MG (*)] 5 mg PO DAILY 07/16/16 Gabapentin [Neurontin 300 MG (*)] 1,200 mg PO HS 07/16/16 Gabapentin [Neurontin 300 MG (*)] 900 mg PO DAILY 07/16/16 LORazepam [Ativan (*)] 2 mg PO DAILY PRN 07/16/16 LORazepam [Ativan (*)] 2 mg PO HS 07/16/16 Oxybutynin Chloride [Ditropan] 5 mg PO BID 07/16/16 Tamsulosin HCl [Flomax 0.4 MG (*)] 0.4 mg PO HS 07/16/16 clonazePAM [klonoPIN (*)] 1 mg PO DAILY PRN 07/16/16 clonazePAM [klonoPIN (*)] 1 mg PO HS 07/16/16 lamoTRIgine [Lamictal] 200 mg PO DAILY 07/16/16 tiZANidine HCL [Zanaflex 2MG (*)] 6 mg PO TID 07/16/16 Herbal Drugs DAILY 09/26/16 Ondansetron TID 09/26/16 Medical Decision Making Differential Diagnosis: Differential considered including but not limited to gastroenteritis, pancreatitis, appendicitis, bowel obstruction, GI bleed, food poisoning. - Data Points Laboratory Results: Laboratory Results 06/22/17 19:00 06/22/17 19:00 06/22/17 06/22/17 19:00 19:00 WBC 2.99 10^3/uL L 10^3/uL (3.80-9.50) RBC 6.07 10^6/uL 10^6/uL (4.40-6.38) Hgb 18.5 g/dL H g/dL (13.7-17.5) Hct 53.4 % H % (40.0-51.0) MCV 88.0 fL fL (81.5-99.8) MCH 30.5 pg pg (27.9-34.1) MCHC 34.6 g/dL g/dL (32.4-36.7) RDW 12.4 % % (11.5-15.2) Plt Count 232 10^3/uL 10^3/uL (150-400) MPV 10.2 fL fL (8.7-11.7) Neut % (Auto) 88.3 % H % (39.3-74.2) Lymph % (Auto) 7.4 % L % (15.0-45.0) Sanders % (Auto) 3.0 % L % (4.5-13.0) Eos % (Auto) 0.3 % L % (0.6-7.6) Baso % (Auto) 0.7 % % (0.3-1.7) Nucleat RBC Rel Count 0.0 % % (0.0-0.2) Absolute Neuts (auto) 2.64 10^3/uL 10^3/uL (1.70-6.50) Absolute Lymphs (auto) 0.22 10^3/uL L 10^3/uL (1.00-3.00) Absolute Monos (auto) 0.09 10^3/uL L 10^3/uL (0.30-0.80) Absolute Eos (auto) 0.01 10^3/uL L 10^3/uL (0.03-0.40) Absolute Basos (auto) 0.02 10^3/uL 10^3/uL (0.02-0.10) Absolute Nucleated RBC 0.00 10^3/uL 10^3/uL (0-0.01) Immature Gran % 0.3 % % (0.0-1.1) Immature Gran # 0.01 10^3/uL 10^3/uL (0.00-0.10) Sodium 144 mEq/L mEq/L (135-145) Potassium 4.3 mEq/L mEq/L (3.5-5.2) Chloride 102 mEq/L mEq/L (97-110) Carbon Dioxide 21 mEq/l L mEq/l (22-31) Anion Gap 21 mEq/L H mEq/L (8-16) BUN 30 mg/dL H mg/dL (7-23) Creatinine 1.1 mg/dL mg/dL (0.7-1.3) Estimated GFR > 60 Glucose 113 mg/dL H mg/dL (70-100) Calcium 9.4 mg/dL mg/dL (8.5-10.4) Total Bilirubin 1.3 mg/dL mg/dL (0.1-1.4) Conjugated Bilirubin 0.4 mg/dL mg/dL (0.0-0.5) Unconjugated Bilirubin 0.9 mg/dL mg/dL (0.0-1.1) AST 91 IU/L H IU/L (17-59) ALT 129 IU/L H IU/L (21-72) Alkaline Phosphatase 94 IU/L IU/L (38-126) Total Protein 7.6 g/dL g/dL (6.3-8.2) Albumin 4.8 g/dL g/dL (3.5-5.0) Lipase 35 IU/L IU/L (23-300) Medications Given: Discontinued Medications Sodium Chloride (Ns) 1,000 mls @ 0 mls/hr IV EDNOW ONE; Wide Open PRN Reason: Protocol Stop: 06/22/17 19:01 Last Admin: 06/22/17 19:35 Dose: 1,000 mls Sodium Chloride (Ns) 1,000 mls @ 0 mls/hr IV EDNOW ONE; Wide Open PRN Reason: Protocol Stop: 06/22/17 19:31 Last Admin: 06/22/17 20:13 Dose: 1,000 mls Sodium Chloride (Ns) 1,000 mls @ 0 mls/hr IV EDNOW ONE; Wide Open PRN Reason: Protocol Stop: 06/22/17 19:31 Last Admin: 06/22/17 21:24 Dose: Not Given Ondansetron HCl (Zofran Odt 4 Mg Prepack#2) 1 btl TAKEHOME EDNOW ONE Stop: 06/22/17 19:31 Last Admin: 06/22/17 21:36 Dose: 1 btl Departure - Departure Disposition: Home, Routine, Self-Care Clinical Impression: Nausea vomiting and diarrhea, Dehydration Condition: Good Instructions: Ondansetron (By mouth), Acute Nausea and Vomiting (ED) Additional Instructions: You need to return to the emergency department immediately if you develop worsening or severe pain, fever, vomiting or you are not completely better in 8- 12 hours. Referrals: Alma Davis [Primary Care Provider] - As per Instructions
[2017-06-22] MEDS ORDERED: NS 1,000 ML IV ONE ×3 (19:00→19:30)
[2017-06-22 19:04] VITALS: TEMP 98.4
[2017-06-22 19:19] LABS: PLATELET COUNT 232 10^3/uL (150-400)
[2017-06-22] MEDS ORDERED: ONDANSETRON 4MG PREPACK#2 BTL TAKEHOME ONE (19:30)
[2017-06-22 21:17] VITALS: RESP 16
[2017-06-22 21:39] VITALS: BP 128/69; PULSE 88; O2SAT 95
== END 2017-06-22 21:43 | disposition home or self-care (01) ==
LOC: EDUNIT#
DX: R19.7 Diarrhea, unspecified (principal); R11.2 Nausea with vomiting, unspecified; E86.0 Dehydration; E86.9 Volume depletion, unspecified; Z79.82 Long term (current) use of aspirin

== ENCOUNTER → 2017-07-17 | Outpatient (CLI) | payer MEDICAID | LOC: BMCIMAGING 13:28 | PROVIDERS: ATTEND Orthopaedic Surgery Hand Surgery | DX: Z47.89 Encounter for other orthopedic aftercare (principal); S52.572D Other intraarticular fracture of lower end of left radius, subsequent encounter for closed fracture with routine healing ==